=== PATIENT | male | born 1960 | race Caucasian/White ===

== ENCOUNTER → 2017-12-27 09:52 | Outpatient (CLI) | payer OTHER, SELFPAY ==
[2017-12-27 13:12] LABS: ALB/GLOB Ratio 1.1 RATIO (0.9-2.4); AST(SGOT) 16 U/L (15-37); Alanine Aminotransfer ALT/SGPT 18 U/L (16-61); Albumin, Serum 3.9 g/dL (3.2-5.0); Alkaline Phosphatase 76 U/L (45-117); Anion Gap 8 (5-15); BUN 10 mg/dL (7-18); BUN/Creat Ratio 7.5 RATIO (10-20); Chloride 103 mmol/L (98-107); Cholesterol 147 mg/dL (200); Creatinine, Serum 1.33 mg/dL (0.70-1.30); EST Glomerular Filtration Rate 59 mL/min (>60); Est Glom Filt Rate - Afr Amer 71 mL/min (>60); Globulin 3.7 g/dL (2.2-4.2); Glucose 81 mg/dL (74-106); High Density Lipoprotein 37 mg/dL; Potassium 3.6 mmol/L (3.5-5.1); Protein, Total 7.6 g/dL (6.4-8.2); Sodium Level 137 mmol/L (136-145); Triglycerides 76 mg/dL; Very Low Density Lipoprotein 15 mg/dL (5-40)
[2017-12-27 13:31] LABS: Absolute Lymphocyte Count 0.79 X10^3/ul (0.83-4.51); Absolute Neutrophil Count 2.2 X10^3/uL (2.0-7.7); Basophil# 0.01 X10^3/uL; Basophil% 0.3 % (0-1); Eosinophil# 0.01 X10^3/uL; Eosinophils% 0.3 % (0-5); Hematocrit 43.8 % (40-54); Hemoglobin 14.3 g/dl (13.0-16.5); Lymphocyte # 0.79 X10^3/ul (4.0); Lymphocyte % 20.2 % (19-41); Mean Corp Hgb Conc 32.6 g/gl (32-36); Mean Corpuscular Hgb 30.2 pg (27.0-32.0); Mean Corpuscular Volume 92.6 fL (80-94); Mean Platelet Vol. 9.4 fl (6.2-12.0); Monocyte# 0.89 X10^3/uL; Monocyte% 22.8 % (0-10); Neutrophil # 2.21 X10^3/uL (2.7-7.7); Neutrophil % 56.4 % (47-70); Platelet Count 193 K/mm3 (150-450); RBC Distribution Width CV 12.6 % (11.6-14.6); RBC Distribution Width SD 42.9 fl (35.1-43.9); Red Blood Count 4.73 M/mm3 (4.6-6.2); White Blood Count 3.9 K/mm3 (4.4-11.0)
[2017-12-27 13:39] LABS: POSITIVE COUNT NO; POSITIVE DIFFERENTIAL NO; POSITIVE MORPHOLOGY NO
== END ==
LOC: BFHLAB 09:52
PROVIDERS: Family Provider Family Medicine; PCP Family Medicine; Visit Provider Family Medicine
DX: Z00.01 Encounter for general adult medical examination with abnormal findings (principal)
CPT/HCPCS: 36415; 80053; 80061; 85025

== ENCOUNTER → 2018-01-08 13:20 | Outpatient (CLI) | payer OTHER, SELFPAY ==
--- NOTE | 2018-01-08 13:20 | SP.MBSS_ITS ---
PRIMARY / SECONDARY DIAGNOSIS: dysphagia (R13.10) REFERRING PHYSICIAN: Dr. Yuri Snider MD CURRENT DIET: regular textures, thin liquids DENTITION: WFL MENTAL STATUS: WNL RESPIRATORY STATUS: O2 via room air PREVIOUS MODIFIED BARIUM SWALLOW STUDY: none REASON FOR REFERRAL: Patient is a 57 year old male referred for a modified barium swallow (MBS) study to objectively assess the Patients oropharyngeal swallow function under fluoroscopy secondary to reported intermittent dysphagia during intake of solid textures, with the Patient reporting occasional feelings of substernal discomfort vs. globus sensation immediately following deglutition of solid textures, with the Patient attributing some of these episodes to bolus volume overload with inattention, with too large of a bite / insufficient mastication. The Patient reports that at times these episodes result in prolonged substernal discomfort and eventual emesis, both self induced and non-volitional. The Patient denies tachyphagia or routine bolus bolting, denies odynophagia. The Patient reports intermittent occurrences of reflux, though this was primarily as a child, and has not noticeably increased or accompanied the above mentioned episodes. MEDICAL HISTORY: No significant medical history reported or available within the electronic medical records at time of assessment. STUDY FINDINGS: Patient participated in a Modified Barium Swallow (MBS) study on 01/08/2018. Dr. eMndoza was the radiologist present for this evaluation. This study was recorded in the lateral view and images were sent to PACs for storage. The following consistencies were presented to this patient for analysis of oropharyngeal swallow function: thin liquids, pudding, and a regular textured, Gali Doone cookie. Results of the MBS are as follows: PENETRATION / ASPIRATION SCALE (HOLDER): 1 = does not enter airway 2 = enters airway/above vocal folds/ejected 3 = enters airway/above vocal folds/not ejected 4 = enters airway/contacts vocal folds/ejected 5 = enters airway/contacts vocal folds/not ejected 6 = enters airway/below vocal folds/ejected 7 = enters airway/below vocal folds/not ejected despite effort 8 = enters airway/below vocal folds/no effort PENETRATION / ASPIRATION SCALE (SCORE): Thin liquids via cup (single sip): 1 Thin liquids via cup (single sip): 1 Pudding via spoon: 1 Regular textured cookie: 1 Regular textured cookie: 1 Thin liquids via cup (12mm tablet): 1 Thin liquids via cup (sequential swallows): 1 IMPRESSION: DIAGNOSIS: swallow function grossly within functional limits ORAL PHASE CHARACTERIZED BY: LABIAL SEAL: no labial escape TONGUE CONTROL DURING BOLUS MANIPULATION: posterior escape of less than half of bolus on one occasion BOLUS PREPARATION / MASTICATION: timely and efficient chewing and mashing BOLUS TRANSPORT / LINGUAL MOTION: brisk tongue motion ORAL RESIDUE: trace residue lining oral structures PHARYNGEAL PHASE CHARACTERIZED BY: INITIATION OF PHARYNGEAL SWALLOW: bolus head in valleculae at first hyoid excursion SOFT PALATE ELEVATION: no bolus between soft palate and pharyngeal wall LARYNGEAL ELEVATION: complete superior movement of thyroid cartilage with complete approximation of arytenoids cartilage to epiglottic petiole ANTERIOR HYOID EXCURSION: complete anterior movement EPIGLOTTIC MOVEMENT: complete epiglottic inversion LARYNGEAL VESTIBULE CLOSURE AT HEIGHT OF SWALLOW: complete laryngeal vestibule closure with no air/contrast in laryngeal vestibule PHARYNGEAL STRIPPING WAVE: pharyngeal stripping wave present / complete PHARYNGOESOPHAGEAL SEGMENT OPENING: complete distension and complete duration with no obstruction of flow TONGUE BASE RETRACTION: trace column of contrast between tongue base and posterior pharyngeal wall PHARYNGEAL RESIDUE: trace residue within or on pharyngeal structures ESOPHAGEAL PHASE CHARACTERIZED BY: ESOPHAGEAL BOLUS CLEARANCE IN THE UPRIGHT POSITION: complete clearance; esophageal coating DIET TEXTURE RECOMMENDATIONS: Will recommend a regular textured, thin liquid diet. COMPENSATORY STRATEGIES RECOMMENDED: Reduced bolus volume, reduced rate of intake, seated upright at 90 degrees during PO intake, remain upright for 30-60 minutes post meal (GERD precaution) INTERPRETATION OF RESULTS: The Patient presents with mastication and deglutition abilities found to be grossly within normal limits. No aspiration appreciated throughout consistencies trialed. Prominent cricopharyngeal bar located at the C-5 C-6 level, no effect on pharyngoesophageal motility. No obvious esophageal phase abnormalities observed. RECOMMENDATIONS: The Patient was somewhat frustrated (appropriately, very pleasant throughout) with the lack of any definitive findings, discussed limitations with esophageal phase findings with the current study; would further consider additional assessment of the Patients esophageal functioning, as it is outside the scope of the modified barium swallow study to objectively assess esophageal functioning, may additionally consider further workup via compensation consulting manager. Further discussed options to complete a repeat therapeutic modified barium swallow study if above mentioned workup does not elucidate the cause of the Patients reported symptoms, with the Patient encouraged to bring in any specific items that routinely cause difficulties in attempt to emulate the Patients reported dysphagia. Otherwise, the Patient was able to comprehend and express recommended intake precautions detailed above with sufficient detail to suggest high likelihood of compliance. Provided brief overview of signs and symptoms of aspiration, with recommendations for the Patient to further discuss symptoms with PCP. No further skilled speech-language services warranted at this time targeting dysphagia at this time. ADDITIONAL COMMENTS/RECOMMENDATIONS: Results and recommendations were discussed with the Patient immediately following MBS completion, with the Patient verbalizing understanding and agreement with all recommendations and education provided. IMAGE COUNT: 1254 G-CODES: SWALLOWING G8996 Current Status: SWALLOWING G8997 Goal Status: SWALLOWING G8998 Discharge Status: Devon Rollins M.A., CCC-SPECIAL SERVICES AGENT [facility] Speech-Language Pathology Department [email or web address]
--- NOTE | 2018-01-08 13:27 | RAD_ITS ---
STUDY: SWALLOWING STUDY REASON FOR EXAM: Male, 57 years old. Dysphasia. TECHNIQUE: The examination was performed with Speech Pathology in attendance. Under fluoroscopic observation, the patient ingested thin barium, thick barium, barium pudding, and barium coated cracker. FLUOROSCOPY TIME: 1:32 minutes/seconds. 1254 fluoroscopic images were obtained. RADIOLOGIST INVOLVEMENT: Radiologist was present and providing direct supervision. COMPARISON: None. FINDINGS: The following was observed during swallowing of the various mixtures of barium: Thin Barium: There was no evidence of aspiration or laryngeal penetration. Barium Pudding: There was no evidence of aspiration or laryngeal penetration. Barium Coated Cracker: There was no evidence of aspiration or laryngeal penetration. RAD/Swallowing Function w/Video IMPRESSION: Normal tailored barium swallow study. No evidence of increased risk for aspiration. The swallow study findings were discussed with the patient by the speech pathologist at the conclusion of the examination. Please see speech pathology report for more information and recommendations. Electronically Signed: Jono Mendoza MD at 14:45 EDT Tel [phone], Service support ,
== END ==
LOC: RAD 13:22
PROVIDERS: Family Provider Family Medicine; PCP Family Medicine; Visit Provider Family Medicine
DX: R13.10 Dysphagia, unspecified (principal)
CPT/HCPCS: 74230; 92611

== ENCOUNTER → 2018-01-29 09:28 | Outpatient (CLI) | payer OTHER, SELFPAY ==
--- NOTE | 2018-01-29 09:45 | RAD_ITS ---
EXAM: BARIUM ESOPHAGRAM WITH DOUBLE AIR-BARIUM CONTRAST TECHNIQUE. TECHNIQUE: Real-time fluoroscopic images of the esophagus following the oral administration of barium contrast and air insufflation crystals. 99 cine imaging obtained and 2 drinking esophagram images are obtained. Imaging included swelling of a 8mm diameter barium pill. Fluoroscopy time: 77 seconds. Dose: 45.86 mGy COMPARISON: No prior esophagram imaging available. Correlation modified esophagram with speech therapy study 01/08/2018. REASON FOR EXAM: Dysphagia with food. Food stuffs mid chest off and on for years, getting worse. Smoking tobacco abuse. FINDINGS: Sliding-type hiatal hernia is noted of moderate degree with minimal GE reflux during the study with and without provocation. No obvious Schatzki's ring identified identified with these images. No esophageal long stricture, obstruction, diverticulum, lab, extravasation of contrast or mucosal lesion such as ulcer or polyp is identified. However, with barium 8 mm diameter tablet, delayed swallowing was noted with the tablet in the vallecula which was then swallowed at the pharyngeal level with water. Additionally, upper thoracic midclavicular level barium tablet delayed swallow was seen at the T4-T5 level slightly left of midline just medial and adjacent to the aortic knob for about 1 minute which may represent physiologic delay possibly due to esophageal dysmotility. Initial upright swallowing shows moderate narrowing of the distal esophagus with mild immediately superior dilatation without finding of esophagitis seen. RAD/Esophagus Only IMPRESSION: Sliding-type minimal to moderate hiatal hernia with moderate esophageal dysmotility especially upper thoracic mid esophagus at the T4-3 level medial medial and just adjacent to the aortic knob. Clinical correlation recommended. Patient describes concordant symptoms. Minimal GE reflux. No finding of extravasation of contrast, esophagitis or mucosal lesion such as ulcer or polyp identified. Electronically Signed: Brian Cobb, at 14:17 EDT Tel , Service support ,
== END ==
LOC: RAD 09:28
PROVIDERS: Family Provider Family Medicine; PCP Family Medicine; Referring Provider Internal Medicine Gastroenterology; Visit Provider Internal Medicine Gastroenterology
DX: R13.10 Dysphagia, unspecified (principal)
CPT/HCPCS: 74220

== ENCOUNTER 2018-11-28 08:34 | Emergency (ER) | payer OTHER, SELFPAY ==
[2018-11-28 08:35] VITALS: BP 151/86; PULSE 59; RESP 18; TEMP 36.6; O2SAT 100; BMI 21.7
--- NOTE | 2018-11-28 08:49 | VDLE_ITS ---
Reason For Study: Pain RIGHT LEFT GSV is normal. CFV is compressible, spontaneous, phasic, CFV is compressible, spontaneous, phasic, competent, and demonstrates normal competent and demonstrates normal augmentation. augmentation. FV is compressible, spontaneous, phasic, competent and demonstrates normal augmentation. POP V is compressible, spontaneous, phasic, competent and demonstrates normal augmentation. T/P Trunk is compressible. PTV is compressible. RT PerV is compressible. Procedure Exam performed portable in ED. A preliminary report was called and/or faxed to [facility]. Interpretation Summary There is no evidence of right lower extremity deep vein thrombosis. Right great saphenous vein appears patent and compressible segmentally. Patent and compressible left common femoral vein Ordering Physician: Baylee Smalls Referring Physician: Yuri Snider Performed By: Minal Enriquez RVT
--- NOTE | 2018-11-28 08:50 | ED.VIS.GEN ---
History of Present Illness Chief Complaint: Lower Extremity Injury Detail of Chief Complaint: Right thigh pain Informant: Patient Onset: Today Context: Sudden Onset Current Severity: Mild Maximum Severity: Moderate Narrative: Patient states that he woke at 4 AM this morning with pain to the right anterior proximal thigh. He states he was up to the restroom at 2 AM with no pain. He denies any injury. He denies any recent travel or leg swelling. No history of DVT. He does have a history of stomach cancer but states that was 20 years ago. Pain is starting to improve at this time. He denies back pain or abdominal pain. Past Medical History - Allergies and Home Meds Allergies/Adverse Reactions: Allergies No Known Allergies Allergy (Verified 11/28/18 08:37) Primary Care Physician: Yuri Snider DO [Primary Care Provider] - Prior records reviewed: Yes Past Medical History: - - Reviewed Lives: Spouse/ Significant Other Review of Systems General: Denies: Chills, Fever Eyes: Denies: Visual changes - bilaterally ENT: Denies: Bilateral ear pain Cardiovascular: Denies: Chest pain Respiratory: Denies: Dyspnea Gastrointestinal: Denies: Abdominal pain Musculoskeletal: Reports: Myalgias Skin: Denies: Rash, Abrasions Neurological: Denies: Headache, Parasthesia Psych: Denies: Depression Hematologic: Denies: Easy bruising Allergy: Denies: Uticaria Physical Exam Vital Signs/Narrative: Vital Signs Temp Pulse Resp BP Pulse Ox 11/28/18 08:35 97.9 F 59 L 18 151/86 H 100 Inital Vital Signs reviewed: Yes General: Well nourished, Well developed ENT: Moist mucous membranes Neck: Supple Cardiovascular: Regular rate, Regular rhythm Respiratory: No distress, CTA bilaterally Abdomen: Soft, Nontender Extremities: Tenderness - Mild tenderness palpation over the anterior proximal right thigh. No edema or palpable masses. No overlying skin change. Strong distal pulses. No tenderness at the hip joint. Skin: Normal color Neurological: Alert, Oriented x3, Normal Strength, Normal Sensation Psychological: Normal affect Diagnostic/Tx/Re-eval - Medical Decision Making Venous ultrasound of the right lower extremity reveals no DVT. On repeat evaluation patient reports no pain as long as his leg is lying flat, but he has mild pain when trying to lift his leg off the bed. He does state that they were walking around a lot yesterday and [place]. My suspicion is he has tendon irritation. Again there is no tenderness over the hip joint itself or over the abdomen. Will use Tylenol or ibuprofen as needed. ED Disposition - Plan for ED Patient: Disposition: Home or Assisted Living Diagnosis: Muscle strain of right thigh Instructions: MUSCLE STRAIN, Extremity Referrals: Yuri Snider DO [Primary Care Provider] - 1 Week if not improving
== END 2018-11-28 11:11 | disposition home or self-care (01) ==
PROVIDERS: Emergency Provider Emergency Medicine; Family Provider Family Medicine; PCP Family Medicine
DX: S76.911A Strain of unspecified muscles, fascia and tendons at thigh level, right thigh, initial encounter (principal); X58.XXXA Exposure to other specified factors, initial encounter; Y93.01 Activity, walking, marching and hiking; Y92.9 Unspecified place or not applicable; Y99.9 Unspecified external cause status; Z85.028 Personal history of other malignant neoplasm of stomach
CPT/HCPCS: 93971; 99282

== ENCOUNTER → 2020-01-06 | Outpatient (CLI) | payer OTHER, SELFPAY | END | disposition home or self-care (01) | LOC: LABSPEC 17:10 | PROVIDERS: PCP Family Medicine; Referring Provider Family Medicine; Visit Provider Family Medicine | DX: Z20.828 Contact with and (suspected) exposure to other viral communicable diseases (principal) | CPT/HCPCS: 87635; C9803; U0003 ==

== ENCOUNTER → 2022-07-21 | Outpatient (CLI) | payer BC, SELFPAY ==
[2022-07-21 18:53] LABS: Absolute Lymphocyte Count 1.71 X10^3/uL (0.83-4.51); Absolute Neutrophil Count 4.2 X10^3/uL (2.0-7.7); Basophil# 0.03 X10^3/uL; Basophil% 0.5 % (0-1); Eosinophil# 0.07 X10^3/uL; Eosinophils% 1.1 % (0-5); Hematocrit 41.7 % (40-54); Hemoglobin 14.1 g/dL (13.0-16.5); Lymphocyte # 1.71 X10^3/ul (0.83-4.51); Lymphocyte % 25.7 % (19-41); Mean Corp Hgb Conc 33.8 g/dL (32-36); Mean Corpuscular Hgb 31.5 pg (27.0-32.0); Mean Corpuscular Volume 93.3 fL (80-94); Mean Platelet Vol. 9.9 fl (6.2-12.0); NRBC Flagged by Analyzer 0 % (0-5); Neutrophil # 4.22 X10^3/uL (2.7-7.7); Neutrophil % 63.4 % (47-70); Platelet Count 221 K/mm3 (150-450); RBC Distribution Width CV 12.2 % (11.6-14.6); RBC Distribution Width SD 42.3 fl (35.1-43.9); Red Blood Count 4.47 M/mm3 (4.6-6.2); White Blood Count 6.7 K/mm3 (4.4-11.0)
[2022-07-21 19:02] LABS: ALB/GLOB Ratio 1.1 RATIO (0.9-2.4); AST(SGOT) 21 U/L (15-37); Alanine Aminotransfer ALT/SGPT 28 U/L (16-61); Albumin, Serum 3.8 g/dL (3.2-5.0); Alkaline Phosphatase 75 U/L (45-117); Anion Gap 7 (5-15); BUN 11 mg/dL (7-18); BUN/Creat Ratio 11.6 RATIO (10-20); Calcium,Total 9.1 mg/dL (8.5-10.1); Chloride 105 mmol/L (98-107); Cholesterol 147 mg/dL (200); Creatinine, Serum 0.95 mg/dL (0.70-1.30); EST Glomerular Filtration Rate 85 mL/min (>60); Est Glom Filt Rate - Afr Amer 103 mL/min (>60); Globulin 3.5 g/dL (2.2-4.2); Glucose 88 mg/dL (74-106); High Density Lipoprotein 36 mg/dL; Magnesium 2.1 mg/dL (1.6-2.6); PSA,Total - Annual Screen 0.58 ng/mL (0.00-4.00); Potassium 3.8 mmol/L (3.5-5.1); Protein, Total 7.3 g/dL (6.4-8.2); Sodium Level 137 mmol/L (136-145); Thyroid Stim Hormone (TSH) 0.36 uIU/mL (0.358-3.74); Triglycerides 78 mg/dL; Very Low Density Lipoprotein 16 mg/dL (5-40)
== END | disposition home or self-care (01) ==
LOC: BFHLAB 15:59
PROVIDERS: PCP Family Medicine; Referring Provider Family Medicine; Visit Provider Family Medicine
DX: Z00.00 Encounter for general adult medical examination without abnormal findings (principal); Z12.5 Encounter for screening for malignant neoplasm of prostate; R25.2 Cramp and spasm
CPT/HCPCS: 36415; 80053; 80061; 83735; 84153; 84443; 85025; G0103

== ENCOUNTER → 2022-08-05 | Outpatient (CLI) | payer BC, SELFPAY ==
--- NOTE | 2022-08-05 16:35 | CT_ITS ---
STUDY: LOW DOSE CT LUNG CANCER SCREENING REASON FOR EXAM: Male, 61 years old. SCREENING RADIATION DOSAGE (If Supplied By Facility): CTDIvol = ( 3.02 ) mGy, DLP = ( 112.87 ) mGycm TECHNIQUE: No contrast was administered. Low dose technique was utilized (average mAS-38 and kVp 120). 1.25 mm axial source images with a slice interval of 1.25-mm were reconstructed in lung windows. 1.2.5 mm coronal and sagittal reformats left lung windows. COMPARISON: None available NODULES: Nodule #: 1 Density: Solid Lung location: Lateral left lower lobe costophrenic angle: Contacting the pleura Location in series: Series Number: 2 Image: 212 Size - D1 x D2 mm: 7 x 7 mm: 7mm average diameter Margin: Circumscribed Shape: Nearly round Calcification: None Fat: None Temporal comparison: N/A Nodule #: 2 Density: Solid Lung location: Anterior right lower lobe: Contacting the pleura Location in series: Series Number: 2 Image: 147 Size - D1 x D2 mm: 4 x 2 mm: 3mm average diameter Margin: Circumscribed Shape: Oval Calcification: None Fat: None Temporal comparison: N/A Nodule #: 3 Density: Solid Lung location: Anterior left lower lobe: Contacting the pleura Location in series: Series Number: 2 Image: 122 Size - D1 x D2 mm: 5 x 2 mm: 4mm average diameter Margin: Circumscribed Shape: Oval Calcification: None Fat: None Temporal comparison: N/A Punctate right basilar calcified granuloma also noted just above the diaphragm. Total lung nodules (excluding granulomas): 3 Parenchyma: Moderate upper lung predominant emphysematous change. Posterior right lower lobe 1.7 cm bulla. No consolidation, effusion, pneumothorax. Minimal bilateral dependent atelectasis. Endobronchial lesion: None Aorta: Mild aortic atherosclerosis without ectasia CORONARY ARTERIES: Moderate multivessel coronary atherosclerosis. Heart: No cardiomegaly or pericardial effusion. Pulmonary artery: No gross enlargement Mediastinal nodes: Scattered mediastinal lymph nodes, mostly subcentimeter in short axis with 1.1 cm lymph node in the aortopulmonary window. Subcentimeter bilateral hilar lymph nodes are also present. Other chest and abdominal findings: None CT/Low Dose CT Lung Screening IMPRESSION: Few pulmonary nodules up to 7 mm in average diameter. OVERALL: Lung-RADS category 3 - Followup screening with LDCT in 6 months. Scattered mediastinal lymph nodes up to 1.1 cm short axis with subcentimeter hilar lymph nodes, likely reactive. This can be reassessed on follow-up CT recommended above. Moderate coronary atherosclerosis. IMPORTANT NOTES FOR USE: ACR Lung-RADS Version 1.1 Assessment Categories Release Date: 2018 Category: Coded 0-4 bases on nodule(s) with highest degree of suspicion. Negative screen is defined as categories 1 and 2; a positive screen is defined as categories 3 and 4. Category 3 and 4A nodules that are unchanged on interval CT should be coded as category 2, and individuals returned to screening in 12 months. Category 4X: Category 3 or 4 nodules with additional imaging findings that increase the suspicion of lung cancer, such as spiculation, GGN that doubles in size in 1 year, enlarged lymph notes, etc. Category Modifiers: S (significant finding unrelated to lung cancer) Electronically Signed: Roger Roach MD at 14:50 EDT ,
== END | disposition home or self-care (01) ==
PROVIDERS: PCP Family Medicine; Referring Provider Family Medicine; Visit Provider Family Medicine
DX: Z12.2 Encounter for screening for malignant neoplasm of respiratory organs (principal); Z72.0 Tobacco use
CPT/HCPCS: 71271

== ENCOUNTER 2022-10-12 10:43 | Day surgery (SDC) | payer BC, SELFPAY ==
--- NOTE | 2022-10-12 10:48 | HP.PCM_ITS ---
[facility] - General General Date of Admission: 10/12/22 Date of Service: 10/12/22 Chief Complaint: Screening colonoscopy HPI Narrative KURT POPE, is a 61 M who presents today for screening colonoscopy. He has a past medical history of gastric cancer status post partial gastrectomy. He is here for screening colonoscopy today. He is not having abdominal pain. He is not have any nausea. Does not have any vomiting or diarrhea. Overall he is in fairly good health. [facility] Medical History Cancer Chronic cough Chronic rhinitis Coronary atherosclerosis Difficulty swallowing Erectile dysfunction Esophageal ring Former smoker Gastric reflux History of esophageal dilatation Leg cramps Lipoma of right upper extremity Loss of hearing Pulmonary nodules Rosacea Shortness of breath on exertion Stomach cancer Tobacco user Wears dentures Home Medications aspirin 81 mg tablet,delayed release (Adult Low Dose Aspirin) 81 mg PO DAILY 09/13/22 [History Last Taken Unknown] multivitamin 1 tab PO DAILY 09/13/22 [History Last Taken Unknown] sildenafil 100 mg tablet 100 mg PO DAILY PRN Erectile Dysfunction 09/13/22 [History Last Taken Unknown] Allergy/AdvReac Type Severity Reaction Status Date / Time No Known Allergies Allergy Verified 10/07/22 14:36 Surgical History History of partial gastrectomy Hx of colonoscopy Social History (Updated 09/13/22 @ 10:54 by Elham Alejandra) current occupational status: employed Smoking Status: Former smoker ROS Review of Systems ROS Unobtainable: other Constitutional Constitutional: Denies fatigue, fever(s), poor appetite, weight gain or weight loss ENT HEENT: Denies mouth lesions Cardiovascular Cardiovascular: Denies abdominal bloating, abdominal edema or abdominal pain Respiratory/Chest Respiratory/Chest: Denies change in mental status, change in phlegm color, chest congestion or chest tightness Gastrointestinal Gastrointestinal: Denies belching, bloating, change in bowel habits, change in stool character, chewing difficulty, coffee ground emesis, constipation, cramping, diarrhea, dyspepsia, dysphagia, early satiety, excessive flatus, fecal incontinence, heartburn, hematemesis, hematochezia, hemorrhoids, loose stools, melena, nausea, odynophagia, rectal bleeding, tenesmus, vomiting or weight changes Genitourinary Genitourinary: Denies abdominal discomfort, burning urination or itching Musculoskeletal Musculoskeletal: Reports as per HPI; Denies muscle weakness or myalgias Integumentary Integumentary: Denies jaundice Neurologic Neurologic: Denies lack of coordination or weakness Psychiatric Psychiatric: Denies confusion, depression, memory loss, mood swings, paranoia or suicidal ideation Endocrine Endocrinology: Denies systems reviewed and no addt'l complaints, except as documented Hematologic/Lymphatic Hematologic/Lymphatic: Denies anemia, easy bleeding, easy bruising or lymphadenopathy Allergic/Immunologic Allergic/Immunologic: Denies systems reviewed and no addt'l complaints, except as documented Physical Exam Const alert General Appearance: cooperative Orientation / Consciousness: oriented to person HEENT hearing grossly normal bilaterally Head and Scalp: normal to inspection Face and Sinus: face symmetric Nose: external nose normal Mouth: oral and palatal mucosa normal Eyes conjunctivae normal General Eye: normal appearance of both eyes Neck full ROM General: normal visual inspection Lymph Lymphatic: no lymphadenopathy noted Chest inspection of chest normal and palpation of chest normal Chest: symmetrical chest wall rise Resp normal respiratory effort Effort and Inspection: able to speak in complete sentences Cardio regular rate GI non-distended Percussion: normal to percussion Rectal Exam: deferred Neuro Speech: speech normal Gait (Neuro): normal gait Assessment & Plan Assessment/Plan (1) Encounter for screening for malignant neoplasm of colon: PLAN: He was explained alternatives, risk, benefits including not withstanding bleeding, infection, sepsis, perforation, need for discharge and . He will have an ASA of 2.
[2022-10-12 11:04] VITALS: BP 138/86; PULSE 60; RESP 17; TEMP 36.8; O2SAT 99; BMI 22.4
[2022-10-12] MEDS: Lactated Ringers 1,000 ML 15 ML IV (11:06)
--- NOTE | 2022-10-12 11:45 | COLBX_PTH ---
PATIENT: KURT POPE LOC: EN U#:[id number] AGE/SX: 61/M ROOM: RE10/12/[address]: Dr. Rodriguez Shelby DO : 1960 BED: DIS: 10/12/2022 SPEC #: [id number] RECD: 10/12/22 13:23 STATUS: PATRICIA REQ #: [id number] TAYLOR: 10/12/22 11:[address]: Rodriguez Shelby DEPT: SURGICAL PATHOLOGY RECD BY: Lissett Rubio ENTERED: 10/13/22 08:45 SP TYPE: COLON BX OTHR DR: Dr. Yuri Snider, DO Tissues: Rectum, NOS Procedures: Surgery Specimen Level IV HEADER OPERATION: Colonoscopy ? open access (MAC) with polypectomy and cautery PRE-OP DIAGNOSIS: Screening TISSUE SUBMITTED: Rectal polyp MICROSCOPIC DIAGNOSIS Rectal polyp, biopsy: Fragments of tubular adenoma. AM:walter 10/14/2022 MICROSCOPIC DESCRIPTION Slides are reviewed. GROSS DESCRIPTION Received in fixative is one container labeled with the patient's name and designated rectal polyp. The specimen consists of multiple irregular fragments of light love soft tissue that in aggregate measure 2.0 x 1.0 x 0.2 cm. The specimen is totally submitted in one cassette. / AM:walter 10/13/2022 TC:5 CPT: 25965
[2022-10-12 12:50] VITALS: BP 102/70; BP 138/86; PULSE 70; RESP 18; TEMP 36.4; O2SAT 95
--- NOTE | 2022-10-12 12:51 | OP.COLON_ITS ---
Patient Name: Mark Garsia Procedure Date: 10/12/2022 12:21 PM Date of : 1960 Age: 61 Procedure: Colonoscopy Indications: Screening for colorectal malignant neoplasm Providers: Rodriguez Shelby DO Medicines: Monitored Anesthesia Care Patient Profile: This is a 61 year old male. Refer to note in patient chart for documentation of history and physical. Last Colonoscopy: none. The patient's first colonoscopy is today. Complications: No immediate complications. Procedure: Pre-Anesthesia Assessment: - Prior to the procedure, a History and Physical was performed, and patient medications and allergies were reviewed. The patient is competent. The risks and benefits of the procedure and the sedation options and risks were discussed with the patient. All questions were answered and informed consent was obtained. Patient identification and proposed procedure were verified by the physician in the pre-procedure area. Mental Status Examination: alert and oriented. Prophylactic Antibiotics: The patient does not require prophylactic antibiotics. Prior Anticoagulants: The patient has taken no previous anticoagulant or antiplatelet agents. After reviewing the risks and benefits, the patient was deemed in satisfactory condition to undergo the procedure. The anesthesia plan was to use monitored anesthesia care (MAC). Immediately prior to administration of medications, the patient was re-assessed for adequacy to receive sedatives. The heart rate, respiratory rate, oxygen saturations, blood pressure, adequacy of pulmonary ventilation, and response to care were monitored throughout the procedure. The physical status of the patient was re-assessed after the procedure. After I obtained informed consent, the scope was passed under direct vision. Throughout the procedure, the patient's blood pressure, pulse, and oxygen saturations were monitored continuously. The colonoscope was introduced through the anus and advanced to the cecum, identified by appendiceal orifice and ileocecal valve. Scope In: 12:30:23 PM Scope Withdrawal Time 0 hours 10 minutes 37 seconds Scope Out: 12:44:12 PM Total Procedure Duration Time 0 hours 13 minutes 49 seconds Findings: The perianal and digital rectal examinations were normal. A single medium-sized localized angiodysplastic lesion with bleeding was found in the cecum. Coagulation for hemostasis using heater probe was successful. Estimated blood loss was minimal. A 9 mm polyp was found in the rectum. The polyp was sessile. The polyp was removed with a hot snare. Resection and retrieval were complete. Verification of patient identification for the specimen was done. Estimated blood loss was minimal. A few small-mouthed diverticula were found in the sigmoid colon. Impression: - A single bleeding colonic angiodysplastic lesion. Treated with a heater probe. - One 9 mm polyp in the rectum, removed with a hot snare. Resected and retrieved. - Diverticulosis in the sigmoid colon. Recommendation: - Discharge patient to home. - Resume previous diet. - Continue present medications. - Await pathology results. - Repeat colonoscopy in 5 years for surveillance. Procedure Code(s): --- Professional --- 47994, 59, Colonoscopy, flexible; with control of bleeding, any method 73457, Colonoscopy, flexible; with removal of tumor(s), polyp(s), or other lesion(s) by snare technique CPT copyright 2017 [employer]. All rights reserved. The codes documented in this report are preliminary and upon kineseologist review may be revised to meet current compliance requirements. Rodriguez Shelby DO 10/12/2022 12:51:14 PM This report has been signed electronically. Number of Addenda: 0 Note Initiated On: 10/12/2022 12:21 PM
--- NOTE | 2022-10-12 12:52 | OP.CCLET_ITS ---
10/12/2022 Yuri Snider [address] [facility] [place] [address] Re : [facility] This procedure was performed on Wednesday, October 12, 2022. My impressions and recommendations are as follows: Impressions : - A single bleeding colonic angiodysplastic lesion. Treated with a heater probe. - One 9 mm polyp in the rectum, removed with a hot snare. Resected and retrieved. - Diverticulosis in the sigmoid colon. Recommendations : - Discharge patient to home. - Resume previous diet. - Continue present medications. - Await pathology results. - Repeat colonoscopy in 5 years for surveillance. My findings are described in the full procedure note, which is enclosed. If I can be of further assistance, please feel free to contact me at . Sincerely, Rodriguez Shelby, 10/12/2022 12:51:14 PM This report has been signed electronically.
[2022-10-12 12:55] VITALS: BP 110/71; BP 138/86; PULSE 68; RESP 18; O2SAT 95
[2022-10-12 13:00] VITALS: BP 114/75; BP 138/86; PULSE 58; RESP 18; O2SAT 96
[2022-10-12 13:08] VITALS: BP 111/79; BP 138/86; PULSE 58; RESP 18; TEMP 36.6; O2SAT 98
[2022-10-12 13:14] VITALS: BP 138/86
== END 2022-10-12 13:57 | disposition home or self-care (01) ==
LOC: EN 10:45 → AC 10:46
PROVIDERS: PCP Family Medicine; Referring Provider Family Medicine; Visit Provider Internal Medicine Gastroenterology
PROC: 0DJD8ZZ Inspection of Lower Intestinal Tract, Via Natural or Artificial Opening Endoscopic (ICD-10-PCS; CPT 45378; principal; 2022-10-12 11:40)
DX: Z12.11 Encounter for screening for malignant neoplasm of colon (principal); K57.30 Diverticulosis of large intestine without perforation or abscess without bleeding; I25.10 Atherosclerotic heart disease of native coronary artery without angina pectoris; Z87.891 Personal history of nicotine dependence; Z90.3 Acquired absence of stomach [part of]; Z85.00 Personal history of malignant neoplasm of unspecified digestive organ; K55.21 Angiodysplasia of colon with hemorrhage; D12.8 Benign neoplasm of rectum
CPT/HCPCS: 45385; 45382; 88305; J7120; J2405

== ENCOUNTER → 2023-03-09 | Outpatient (CLI) | payer BC, SELFPAY ==
--- NOTE | 2023-03-09 13:59 | CT_ITS ---
INDICATION: F/U PULM NODULE EXAMINATION: CT CHEST WITHOUT CONTRAST - CT Chest W/O Contrast Injection TECHNIQUE: Helically acquired images were obtained of the chest. A radiation dose optimization technique was used for this scan. IV Contrast dosage and agent: None. COMPARISON: 08/05/2022 FINDINGS: LUNGS, PLEURA AND LARGE AIRWAYS: Stable 4 x 2 pulmonary nodule anterior left lower lobe contacting the pleura, image 62 of series 4; stable 4 x 2 mm nodule right lower lobe contacting the pleura, image 73 of series 4; stable pleural-based 7 x 7 mm nodule left lower lobe laterally, image 107 of series 4. No consolidations, infiltrates or mass lesions. Stable changes of emphysema with bullous changes at the right lung base and stable pneumatocele right lower lobe. No pleural effusions. THYROID: No thyroid lesions. HEART AND PERICARDIUM: Heart size is normal. No pericardial effusion. Coronary artery calcifications present. VESSELS: Stable ectasia ascending thoracic aorta. MEDIASTINUM AND CHANA: Stable shotty mediastinal lymph nodes. Esophagus is unremarkable. No hiatal hernia. UPPER ABDOMEN: No acute pathology. Cholelithiasis. BONES: No acute or aggressive abnormality. CT/Chest without Contrast IMPRESSION: Stable pulmonary nodules. Recommend further six-month follow-up. No acute pulmonary findings. Electronically Signed: Yon Shelby MD at 19:07 [facility] ,
== END | disposition home or self-care (01) ==
LOC: CT 13:58
PROVIDERS: PCP Family Medicine; Referring Provider Family Medicine; Visit Provider Family Medicine
DX: R91.8 Other nonspecific abnormal finding of lung field (principal)
CPT/HCPCS: 71250

== ENCOUNTER → 2023-10-02 | Outpatient (CLI) | payer BC, SELFPAY ==
--- NOTE | 2023-10-02 15:59 | CT_ITS ---
INDICATION: MULTIPLE PULMONARY NODULES EXAMINATION: CT CHEST WITH CONTRAST - CT Chest W/ Contrast Injection TECHNIQUE: Helically acquired images were obtained of the chest following IV contrast. The protocol utilizes one or more of the following dose reduction techniques: automated exposure control, adjustment of mA and/or kV according to patient size,and/or use of iterative reconstruction technique. IV Contrast dosage and agent: 100 mL of Isovue 300 RADIATION DOSAGE (If Supplied By Facility): CTDIvol = ( 11.51 ) mGy, DLP = ( 385.71 ) mGycm COMPARISON: Prior study dated: 03/09/2023 FINDINGS: LUNGS, PLEURA AND LARGE AIRWAYS: The central airways are patent. Severe centrilobular and paraseptal emphysema. No consolidation. Unchanged fissural lymph node along the left major fissure on series 2 image 63. Additional unchanged fissural lymph node at the right major fissure on series 2 image 76. Pleural-based left lower lobe nodule identified measuring 0.7 cm on series 2 image 106. This is unchanged. No new pulmonary nodule. No pleural effusion or thickening. No pneumothorax. THYROID: No thyroid lesions. HEART AND PERICARDIUM: Heart size is normal. No pericardial effusion. Coronary artery calcifications are noted. VESSELS: Thoracic aorta is not dilated. No aortic dissection. No obvious central pulmonary embolism although this study was not performed with the pulmonary embolism protocol. MEDIASTINUM AND CHANA: No mediastinal or hilar adenopathy. Esophagus is unremarkable. No hiatal hernia. UPPER ABDOMEN: Cholelithiasis without findings to suggest acute cholecystitis. BONES: No suspicious lytic or blastic abnormality. Mild degenerative changes of the spine. CT/Chest WITH Contrast IMPRESSION: Severe emphysema. Left lower lobe 0.7 cm nodule is unchanged. As such, suggest resumption of annual lung cancer screening CT . Cholelithiasis. Electronically Signed: Bear Torres MD at 22:30 EDT ,
[2023-10-02 16:28] LABS: CREATININE FINGERSTICK < 1.0 mg/dL (0.70-1.30); EGFR FINGERSTICK > 60.0000 mL/min (>60)
== END | disposition home or self-care (01) ==
LOC: CT 15:53
PROVIDERS: PCP Family Medicine; Referring Provider Family Medicine; Visit Provider Family Medicine
DX: Z01.812 Encounter for preprocedural laboratory examination (principal); R91.8 Other nonspecific abnormal finding of lung field
CPT/HCPCS: 71260; Q9967

== ENCOUNTER → 2023-11-21 | Outpatient (CLI) | payer BC, SELFPAY ==
--- NOTE | 2023-11-21 13:45 | RAD_ITS ---
STUDY: X-RAY - CERVICAL SPINE REASON FOR EXAM: Male, 63 years old. Radiating neck pain TECHNIQUE: 5 view(s) of the cervical spine were obtained. COMPARISON: None FINDINGS: Normal anterior atlantoaxial articulation. Normal odontoid process. There is straightening of the normal cervical lordosis. Normal vertebral bodies and endplates. Normal disc space heights in the proximal cervical spine there is disc space narrowing at C5-6, C6-7, and C7-T1.. Bilateral foraminal narrowing in the lower cervical spine The soft tissue structures are unremarkable. RAD/Cerv Spine 4 or 5 Views IMPRESSION: Multilevel degenerative changes in the lower cervical spine from C5-6 to C7-T1. No fracture or suspicious osseous lesion Electronically Signed: Iron Banks MD at 14:44 EDT ,
== END | disposition home or self-care (01) ==
LOC: MTRAD 13:39
PROVIDERS: PCP Family Medicine; Referring Provider Nurse Practitioner Family; Visit Provider Nurse Practitioner Family
DX: M54.2 Cervicalgia (principal)
CPT/HCPCS: 72050

== ENCOUNTER 2024-06-01 08:19 | Outpatient (CLI) | payer BC, SELFPAY ==
[2024-06-01 09:21] LABS: Absolute Lymphocyte Count 1.36 X10^3/uL (0.83-4.51); Absolute Neutrophil Count 3.5 X10^3/uL (2.0-7.7); Basophil# 0.03 X10^3/uL; Basophil% 0.5 % (0-1); Eosinophils% 1.8 % (0-5); Hematocrit 47.1 % (40-54); Hemoglobin 15.4 g/dL (13.0-16.5); Lymphocyte # 1.36 X10^3/ul (0.83-4.51); Lymphocyte % 24.9 % (19-41); Mean Corp Hgb Conc 32.7 g/dL (32-36); Mean Corpuscular Hgb 30.6 pg (27.0-32.0); Mean Corpuscular Volume 93.6 fL (80-94); Mean Platelet Vol. 9.2 fl (6.2-12.0); Monocyte# 0.46 X10^3/uL; Monocyte% 8.4 % (0-10); NRBC Flagged by Analyzer 0 % (0-5); Neutrophil # 3.51 X10^3/uL (2.7-7.7); Neutrophil % 64.2 % (47-70); Platelet Count 206 K/mm3 (150-450); RBC Distribution Width CV 12.7 % (11.6-14.6); RBC Distribution Width SD 43.8 fl (35.1-43.9); Red Blood Count 5.03 M/mm3 (4.6-6.2); White Blood Count 5.5 K/mm3 (4.4-11.0)
[2024-06-01 09:23] LABS: D-Dimer Quantitative (DVT/PE) 0.27 FEU/ug/m (0.27-0.49)
[2024-06-01 09:51] LABS: ALB/GLOB Ratio 1.1 RATIO (0.9-2.4); AST(SGOT) 16 U/L (15-37); Alanine Aminotransfer ALT/SGPT 25 U/L (16-61); Albumin, Serum 4.1 g/dL (3.2-5.0); Alkaline Phosphatase 78 U/L (45-117); Anion Gap 3 (5-15); BUN 14 mg/dL (7-18); BUN/Creat Ratio 13.9 RATIO (10-20); Calcium,Total 9.5 mg/dL (8.5-10.1); Chloride 108 mmol/L (98-107); Cholesterol 181 mg/dL (200); Creatinine, Serum 1.01 mg/dL (0.70-1.30); EST Glomerular Filtration Rate 79 mL/min (>60); Est Glom Filt Rate - Afr Amer 96 mL/min (>60); Globulin 3.8 g/dL (2.2-4.2); Glucose 99 mg/dL (74-106); High Density Lipoprotein 55 mg/dL; PSA,Total - Annual Screen 0.58 ng/mL (0.00-4.00); Potassium 4.6 mmol/L (3.5-5.1); Protein, Total 7.9 g/dL (6.4-8.2); Sodium Level 139 mmol/L (136-145); Thyroid Stim Hormone (TSH) 0.836 uIU/mL (0.358-3.740); Triglycerides 80 mg/dL; Very Low Density Lipoprotein 16 mg/dL (5-40)
== END 2024-06-01 23:59 | disposition home or self-care (01) ==
LOC: LAB 08:21
PROVIDERS: PCP Family Medicine; Referring Provider Family Medicine; Visit Provider Family Medicine
DX: Z00.00 Encounter for general adult medical examination without abnormal findings (principal); Z12.5 Encounter for screening for malignant neoplasm of prostate; R06.09 Other forms of dyspnea; R53.83 Other fatigue
CPT/HCPCS: 36415; 80053; 80061; 84153; 84443; 85025; 85379; G0103

== ENCOUNTER 2024-06-25 09:38 | Outpatient (CLI) | payer BC, SELFPAY ==
--- NOTE | 2024-06-25 09:43 | STEWCON_ITS ---
Reason For Study Reason For Study: Abnormal EKG Stress Results Protocol: Stress Echocardiogram with Definity, James Protocol Maximum Predicted HR: 156 bpm Target HR: 133 bpm % Maximum Predicted HR: 79 % Heart Stage Duration Rate BP Comment (mm:ss) (bpm) Baseline 55 150/82Patient denies chest pain Stage 1 3:00 95 148/78Patient denies chest pain Stage 2 3:00 111 160/72Patient denies chest pain. Complains of shortness of breath. Stage 3 2:06 123 170/80Increased shortness of breath. Fatigue. Patient denies chest pain. Shortness of breath resolved. 2.5 ml Total Definity used per Recovery 64 140/72protocol. Stress Duration: 8:06 mm:ss Maximum Stress HR: 123 bpm Baseline Echocardiogram Findings The left ventricular ejection fraction is 50 %. Normal size and thickness. Stress Echo Wall motion Data Resting WM Intermediate WM Stress WM Resting Wall Motion Wall Motion Stress Inferior wall hypokinesis. The inferior wall remains hypokinetic and does not augment post stress. The inferior septum and mid to distal anterior septum failed to augment post stress. EKG Data Resting ECG shows sinus bradycardia. Exercise stress ECG shows sinus tachycardia with no ischemic changes. ECHO/Stress Test Echo W/Contrast Interpretation Summary Resting ECG sinus bradycardia. Patient failed to achieve target heart rate. Ach ieved 79% maximum predicted heart rate. Exercise terminated secondary to dyspnea. No ECG evidence of ischemia at 79% of maximum predicted heart rate. Resting left ventricular systolic ejection fraction 50%. Resting inferior hypok inesis. Postexercise, left ventricular systolic ejection fraction fails to augment. Inf erior wall remains hypokinetic suggestive of possible prior infarct. Inferior septal, apical and mid to distal anterior s eptal hypokinesis post exercise suggestive of ischemia. Ordering Physician: Yuri Snider Referring Physician: Yuri Snider Performed By: RR
== END 2024-06-25 23:59 | disposition home or self-care (01) ==
PROVIDERS: PCP Family Medicine; Referring Provider Family Medicine; Visit Provider Family Medicine
DX: I25.10 Atherosclerotic heart disease of native coronary artery without angina pectoris (principal); I25.2 Old myocardial infarction; R06.09 Other forms of dyspnea; R94.31 Abnormal electrocardiogram [ECG] [EKG]
CPT/HCPCS: 93017; 93350; Q9957; A4216; C8928

== ENCOUNTER 2024-08-14 07:03 | Day surgery (SDC) | payer BC, SELFPAY ==
--- NOTE | 2024-08-09 10:09 | RAD_ITS ---
PROCEDURE: CHEST PA AND LATERAL (RADCXR), 08/09/2024 REASON FOR EXAM: PRE-PROCEDURE DIAGNOSTIC TECHNIQUE: PA and lateral views of the chest were obtained. COMPARISON: None FINDINGS: Heart: Unremarkable. Mediastinum: Trace atherosclerosis in the aortic arch. Lungs/pleura: Suspect emphysema. Question vague interstitial/airspace disease in the posterior lung bases most evident on the lateral view. No pleural effusion or visible pneumothorax. Bones: Multilevel spondylosis. Trace thoracolumbar scoliosis. Lines and support devices: None. Other: Surgical clip projects over the anterior abdomen on the lateral view. RAD/Chest PA and Lateral IMPRESSION: 1. Suspect vague opacities in the posterior lung bases on the lateral view with out priors for comparison. Correlate for pneumonia and recommend follow-up to radiographic resolution versus CT. In lig ht of reported long history of smoking by technologist, CT may be prudent. Regardless, follow-up lung cancer screening i s probably indicated per the below. 2. Additional description as above. The USPSTF recommends annual screening for lung cancer with low-dose computed t omography (LDCT) in adults aged 50 to 80 years who have a 20 pack-year smoking history and currently smoke or have quit within the past 15 years. Reading Location: [id number]
[2024-08-09 10:41] LABS: Hematocrit 43.6 % (40-54); Mean Corp Hgb Conc 34.4 g/dL (32-36); Mean Platelet Vol. 9.1 fl (6.2-12.0); Platelet Count 198 K/mm3 (150-450); RBC Distribution Width CV 12.4 % (11.6-14.6); RBC Distribution Width SD 42.5 fl (35.1-43.9); Red Blood Count 4.69 M/mm3 (4.6-6.2); White Blood Count 6.3 K/mm3 (4.4-11.0)
[2024-08-09 10:55] LABS: Prothrombin Time (Protime)PT. 13.5 SECONDS (11.7-14.9)
[2024-08-09 11:33] LABS: Anion Gap 11 (5-15); BUN 14 mg/dL (4-19); BUN/Creat Ratio 13.8 RATIO (10-20); Calcium,Total 9.3 mg/dL (7.6-11.0); Chloride 103 mmol/L (98-108); Creatinine, Serum 1.02 mg/dL (0.70-1.20); EST Glomerular Filtration Rate 82 (>60); Glucose 89 mg/dL (70-99); Potassium 3.9 mmol/L (3.3-5.1); Sodium Level 137 mmol/L (133-145)
[2024-08-13 08:53] VITALS: BMI 24.4
--- NOTE | 2024-08-14 07:11 | ECHOCS_ITS ---
Reason For Study Reason For Study: ABNORMAL CV FUNCTION STUDY Procedure This was a 2D Doppler, Color Flow transthoracic echocardiogram. The study was technically difficult. Due to respiratory interference. Contrast injection was performed. Left Ventricle Normal size and thickness. Apical false tendon noted. Mild posterior basal and inferior hypokinesis. Estimated LVEF 50%. Stage I diastolic dysfunction. Right Ventricle Normal right ventricle. Atria The left and right atria are normal. Mitral Valve Moderate (2+) mitral valve insufficiency. Tricuspid Valve Mild tricuspid valve insufficiency. Right ventricular systolic pressure estimated to be 40 mmHg. Aortic Valve The aortic valve is not well visualized in the short axis view. There is no aortic stenosis. No aortic valve insufficiency. Pulmonic Valve The pulmonic valve is not well visualized. Great Vessels Normal sized aortic root. Pericardium/Pleural No pericardial effusion. Medication Diluted definity 3.0ml given slow IV push to enhance endocardial definition. MMode/2D Measurements & Calculations LVIDd: 5.6 cm IVSd: 1.0 cm Ao root diam: 3.2 cm LVIDs: 4.0 cm LVPWd: 1.0 cm RVDd: 3.3 cm FS: 29.6 % LAV(MOD-bp): 70.6 ml LVAd ap4: 34.7 cm2 SV(MOD-sp4): 52.1 ml LAV(MOD-bp) Indexed: 35.5 ml/m2 LVLd ap4: 8.9 cm SI(MOD-sp4): 26.2 ml/m2 LAV(MOD-sp2): 68.8 ml EDV(MOD-sp4): 113.4 ml LAV(MOD-sp4): 64.5 ml EDV(sp4-el): 115.2 ml LVAs ap4: 24.0 cm2 LVLs ap4: 8.1 cm ESV(MOD-sp4): 61.4 ml ESV(sp4-el): 60.2 ml EF(MOD-sp4): 45.9 % EF(sp4-el): 47.7 % SV(sp4-el): 55.0 ml LA A4 area: 20.1 cm2 LA dimension(2D): 3.9 cm RA A4 area: 14.7 cm2 TAPSE: 2.7 cm Time Measurements MV dec time: 0.20 sec Doppler Measurements & Calculations MV E max duncan: 68.6 cm/sec Lat Peak E' Duncan: 9.9 cm/sec Med Peak E' Duncan: 7.2 cm/sec MV A max duncan: 68.2 cm/sec E/E' lat: 6.9 E/E' med: 9.5 MV E/A: 1.0 MV V2 max: 88.4 cm/sec MV P1/2t max duncan: 87.4 cm/sec Ao V2 max: 100.7 cm/sec MV max P.1 mmHg MV P1/2t: 64.0 msec Ao max P.1 mmHg MV V2 mean: 42.0 cm/sec MV dec slope: 400.1 cm/sec2 Ao V2 mean: 76.1 cm/sec MV mean P.92 mmHg MVA(P1/2t): 3.4 cm2 Ao mean P.5 mmHg MV V2 VTI: 30.9 cm Ao V2 VTI: 26.1 cm AV (velocity ratio): 0.88 LV V1 max: 94.4 cm/sec PA V2 max: 95.2 cm/sec TR max duncan: 297.2 cm/sec LV V1 max P.6 mmHg PA V2 mean: 60.8 cm/sec TR max P.3 mmHg LV V1 mean P.7 mmHg LV V1 mean: 59.4 cm/sec LV V1 VTI: 23.1 cm ECHO/Echo Complete W/ Contrast Interpretation Summary Mild posterior basal and inferior hypokinesis. Estimated LVEF 50%. Stage I dale tolic dysfunction. Moderate (2+) mitral valve insufficiency. Mild tricuspid valve insufficiency. Right ventricular systolic pressure estimated to be 40 mmHg. Ordering Physician: Sohail Muse Referring Physician: Yuri Snider Performed By: Elizabeth Dee, RDCS, RVT
--- NOTE | 2024-08-14 09:56 | CL.D_ITS ---
Patient Name: KURT POPE Study Date: 08/14/2024 Performing: Sohail Muse MD Ht: 71 inches 180.34 cm : 1960 Wt: 174.98 lbs 79.37 kg Age: 63 Gender: male BSA: 1.99 PROCEDURE(S) PERFORMED DC02-([id number])[facility] CLINICAL PROFILE AND INDICATIONS Indications: Suspected CAD Heart Failure: None Stress/Imaging Stress Echocardiogram: Yes Result: Positive High RiskStress Echocardiogram: Positive High Risk CAD Presentations: Other: Dyspnea CONCLUSIONS 80% Prox, 80% Mid LAD; 50% ostial D1 80% Prox OM1 Distal RCA sub-total, RPLV and RPDA filling retrogradely via collaterals from the left system RECOMMENDATIONS Surgery consult for coronary revascularization DESCRIPTION OF PROCEDURE The patient arrived to the procedure lab. The risks and benefits of the procedure as well as a full description of our services here and current unavailability of surgical backup were fully explained to the patient and/or their significant other prior to the catheterization. The Timeout was completed, verifying the correct patient and procedure. The patient's procedural site was prepped and draped in the usual fashion. Local anesthetic was given subcutaneously to right radial region with Lidocaine 2%. Using a modified Seldinger technique, arterial access was obtained via the right radial artery, a 6Fr sheath was inserted. Left Coronary Artery selective angiography was performed in multiple views using a 5 Fr. 4.0 [place] catheter. Right Coronary Artery selective angiography was then performed in multiple views using a 5 Fr. 4.0 [place] catheter.The arterial sheath was pulled and a TR Band was applied for hemostasis 11 ml of air CORONARY ANGIOGRAPHY DOMINANCE: Right Dominant LEFT MAIN: Tubular 20% Ostial lesion in LMCA LEFT ANTERIOR DESCENDING ARTERY: LAD: Tubular 80% Mid lesion in LAD Tubular 80% Mid lesion in LAD DIAGONAL 1: Tubular 50% Ostial lesion in DIAG1 OM 1: Tubular 80% Proximal lesion in MARG1 OM 2: Tubular 80% Proximal lesion in MARG1 RIGHT CORONARY ARTERY: RCA: Tubular 50% Mid lesion in RCA Tubular 50% Proximal lesion in RCA Tubular 99% Distal lesion in RCA COLLATERAL FLOW: Collateral flow from DIAG1 to RT LV-BR Collateral flow from SEP to RT PDA COMPLICATIONS No Complications PROCEDURE MEDICATIONS Fentanyl 50 mcg IV Versed 1 mg IV Fentanyl 50 mcg IV Versed 1 mg IV Oxygen: 2 L/min via nasal cannula Baby Aspirin (81mg) 1 Tabs PO @ 08/14/2024 08:37:34 Heparin given IA 08/14/2024 09:01:07 Verapamil 2.5mg, Ntg 200mcgs, 2000 units of Heparin given IA 08/14/2024 09:01:07 SUMMARY OF HEMODYNAMIC DATA Time AIR REST ECG 08:35:49 AO 121/69 (89) SA 09:07:33 AO 123/68 (90) 09:12:33 AIR REST 09:54:07 Signed By Sohail Muse MD On 08/14/2024 09:55:40 Signed By Sohail Muse MD On 08/14/2024 09:54:57 Sohail Muse MD
== END 2024-08-14 11:45 | disposition home or self-care (01) ==
PROVIDERS: PCP Family Medicine; Referring Provider Internal Medicine Cardiovascular Disease; Visit Provider Internal Medicine Cardiovascular Disease
DX: I25.10 Atherosclerotic heart disease of native coronary artery without angina pectoris (principal); J43.9 Emphysema, unspecified; R94.39 Abnormal result of other cardiovascular function study; F17.210 Nicotine dependence, cigarettes, uncomplicated; Z79.82 Long term (current) use of aspirin; Z82.49 Family history of ischemic heart disease and other diseases of the circulatory system
CPT/HCPCS: 36415; 71046; 80048; 85027; 85610; 93306; 93454; 99152; 99153; Q9957; Q9967; A4216; C1769; C1894; C8929

== ENCOUNTER → 2024-10-18 | Outpatient (CLI) | payer BC, SELFPAY ==
--- NOTE | 2024-10-18 14:02 | PCM.CR.HP2 ---
CR - History & Physical General Arrival date:: 10/18/24 Arrival time:: 14:02 Date of Referral:: 10/07/24 Date of CR Evaluation:: 10/18/24 Referring Physician: Dr. Muse Primary Diagnosis: CABG History of Present Cardiac Event Onset Date Coronary Artery Bypass Graft:: Yes (09/15/24 onset) Vessel: ARCHULETA to zoey LAD, SVG to the obtuse marginal, and SVG to the right PDA Medications Ambulatory Orders ?Medication ?Instructions ?Recorded aspirin 81 mg tablet,delayed 81 mg PO DAILY 09/13/22 release (Adult Low Dose Aspirin) multivitamin 1 tab PO DAILY 09/13/22 sildenafil 100 mg tablet 100 mg PO DAILY PRN Erectile 09/13/22 Dysfunction methocarbamol 500 mg tablet 500 mg PO TID 10/07/24 metoprolol tartrate 25 mg tablet 25 mg PO BID 10/07/24 rosuvastatin 20 mg tablet 20 mg PO QDAY #90 tabs 10/07/24 Allergies Allergies No Known Allergies Allergy (Verified 10/07/24 14:07) Sleep Disorder Evaluation Hx of Sleep Apnea: No Do you snore loudly (louder than talking or can be heard through closed doors)?: No Do you often feel tired/ fatigued/ sleepy during daytime?: No Has anyone observed you stop breathing during sleep?: No History of Hypertension (for STOP score): No STOP Results: Negative Advanced Directives Advanced Directives Do you have a Healthcare Power of Pediatric Care Coordinator?: No Living Will: No Advance Directives Information Provided: No Advance Directives on File: No DNR Order?:: No Past Medical History Covid-19 Screening Physicial Symptoms Other Clinical Concerns Exposure Risk Pertinent Comorbidities Has a chronic lung disease or moderate to severe asthma:: Yes Has a serious heart condition:: Yes Past Medical Illness Past Medical History (Updated 10/07/24 @ 14:[address] 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 Sohail Muse MD) S/P coronary artery bypass graft x 3 Z95.1 Hx of colonoscopy Z98.890 WITH EGD History of partial gastrectomy Z90.3 Social History Smoking History Smoking Status: Former smoker Years Smokin (Stopped in August) Packs Smoked per Day: 2 Alcohol Use Alcohol Usage: No Occupation Occupation (List type of work in comments):: Retired (November 08 will retire) Social Environment Status Marital Status: Current Living Arrangements Living Environment:: Spouse Children How many children do you have?: 2 Do any of your children live nearby?: Yes Safety Do you feel safe in your surroundings?: Yes Assistance Do you need any assistance at home?: no Review of Systems Review of Systems Hints Review of Present Symptoms: Reports Shortness of Breath with Exertion, Operative Discomfort, Dizziness/Lightheadedness, Fatigue, Appetite - Normal, Appetite - Special Diet and Sleep - Normal; Denies Shortness of Breath at Rest, PVD, Angina, Wound Healing, Heart Arrhythmia/Irregularities or Sexual Changes Pain Is Patient Pain Free?: Yes Risk Factor Assessment Chief Complaint Chief Complaint: CABG Vital Signs Pulse Ox: 99 Blood Pressure: 90/58 Pulse Pulse Rate: 61 Pulse Rhythm: Regular Hypertension Blood Pressure Sitting - Right Arm: 90/58 Obesity Height: 5 ft 11 in Weight:: 154 lb Weight in Pounds: 154.0 lbs Body Mass Index (BMI): 21.4 Physical Inactivity Physical Inactivity: Reg Exercise 30 min/day Risk Stratification Risk Guidelines: Moderate Risk: Risk Factor for Diabetes, Risk Factor for Obesity, Risk Factor for Hypertension, Risk Factor for Sedentary Lifestyle and Risk Factor for Depression and Highest Risk: Risk Factor for Smoking and Risk Factor for Dyslipidemia For Smoking Smoking Risk Guidelines For Dyslipidemia Dyslipidemia Risk Guidelines For Diabetes Mellitus Diabetes Risk Guidelines For Obesity/Overweight Obesity/Overweight Risk Guidelines For Hypertension Hypertension Risk Guidelines For Sedentary Lifestyle Sedentary Lifestyle Risk Guidelines For Depression Depression Risk Guidelines Motivation Motivation to Participate On a scale of 1 to 10, how prepared are you to commit to attending program?: 6 What do you see as barriers to successfully being able to complete the program?: nothing What do you see as the benefits of succesfully completing the program? In other words, what do you hope to get out of participating in the program?: stamina Are there issues you are dealing with that will interfere with completing the program?: no Do you have a spouse or signficant other, family or friends who will help support you to complete the program?: yes
--- NOTE | 2024-10-18 14:09 | PCM.CR.ITP ---
Diagnosis General Information Admitting Diagnosis: CABG Personal Learning Style:: Audio/Visual Barriers to Learning: No Barriers Stage of change r/t lifestyle modifications:: Contemplation Gave educational material for:: Treating Heart Disease, How The Heart Works, What it means to have Heart Disease, How Coronary Artery Disease is Diagnosed, Heart Procedures, What Heart Medications Do, Risk Factors & Modifications, Living an Active Life, Nutrition, Emotions & Heart Disease, Stress Management & Relaxation and Sleep Disorders & Heart Disease Diagnosis & Disease Process Outcomes/Goals: Pt IDs own risk factors & lifestyle modifications by Session 10, Verbalizes symptoms of angina & response by session 3., Pt independently manages and Other Additional Outcomes/Goals: Plan/Interventions: Assist Pt to ID & engage in lifestyle modification to reduce CVD risk, Instruct on individual risk factors, Review symptoms of angina & emergency actions, Review secondary diagnosis & identify educational needs. and Other see comment 30 day Reassessments:: Not Met 30 day Reassessments:: Not Met 30 day Reassessments:: Not Met 30 day Reassessments:: Not Met Final Reassessments:: Not Met Safety Referral to Physical Therapy: No Referral to [facility] Case Management: No Fall Risk Assessed:: Yes Assistive Devices:: None Exercise - Initial Assessment Visit Date of Eval: 10/18/24 (initial eval ) Mets: Pre-: >3 METS for 30 minutes by discharge, >5 METS for 30 minutes by discharge, >7 METS for 30 minutes by discharge and Unable to meet goal due to: (see comment below) Physician Prescribed Exercise Modalities: Treadmill, Apix[employer]inn Airdyne AD-7, TFG [employer] SolutionsFit Stepper, TFG [employer] SolutionsFit Pro-II Ergometer and Conelum Lateral Moore Frequency: 3x/week for 12 weeks [36 sessions] Intensity: 60-80% of age predicted maximum heart rate reserve Duration: 30 - 45 minutes Current METSs:: 3 Target Heart Rate:: 93-117 EKG Type: NSR Outcomes & Goals Goals:: Verbalizes understanding of THR, RPE & goal METS by session 6, Documents in home exercise log/reports 30 min aerobic 5 day/wk by DC, Demonstrates accurate pulse taking by DC and Other additional outcome/goals: see below Intervention & Plan Exercise Program Goals: Instruct on personal THR & RPE, Instruct on MET level & personal MET goal, Show patient to take own pulse /validate performance until accurate, Instruct on home exercise and Other additional plan/int Physical Activity Home Exercise Physical Activity - Home Exercise: Safe Exercise, Warm-up, Self-monitoring, Cool-Down, Home Exercise > 30 min Daily and Sitting Time <3 hours/daily Outcomes & Goals Outcomes/Goals: Demonstrates correct Warm-up/exercise Cool-Down (S3) if = 2.5 METs, Verbalizes symptoms of exercise intolerance by Session 3 (S3), Demonstrate safe equipment use (S3) & follows exercise prescrition (6) and Other: See below Intervention & Plan Plan/Intervention: Instruct warm-up & cool-down if exercising at > 2 METs, Instruct on symptoms of exercise intolerance & actions to take, Instruct & monitor on saf, Assess intial functional capacity & safety risk and Other See below Nutrition - Initial Assessment Program Goals Nutrition Program Goals Patient has diagnosis of Hyperlipidemia (ICD E78)?: Yes Visit Date of Eval: 10/18/24 (initial eval ) Cholesterol/Lipids (Other Core Measures) Determine presence & major risk factors that modify LDL goal: Cigarette smoking, Hypertension or hypertensive medication, Low HDL cholesterol <40 mg/dL*, Family history of premature CHD in Male < 55 years: female <65 yearsFa and Age men > 45 years; women >/= 55 years Outcomes/Goals: Pt IDs own risk factors & lifestyle modifications by Session 10, Verbalizes symptoms of angina & response by session 3., Pt independently manages and Other Additional Outcomes/Goals: Intervention/Plan: Advocate for lipid panel cholesterol medication if applicable, Instruct on personal lipid levels & lipid goals/NCEP guidelines, Instruct on cholesterol and Other additional plan/int Diabetes (Other Core Measures) Diabetes Type: Not Applicable Weight Mgt (Other Care) Height: 5 ft 11 in Weight:: 154 lb BMI: 21.4 Diagnosis Overweight/Obesity BMI> 30% ICD-10 E66: No Diagnosis High BMI/Morbid Obesity BMI> 35% ICD-10 Z68: No Outcomes/Goals: Pt sets, maintains & shows weight loss goal & trend during rehab and Other additional outcomes/goals Intervention/Plan: Instruct on ideal BMI & set weight loss goal w/patient, Assist pt to ID & incorporate diet changes for weight loss by S9, Refer to Structured Weight Loss program as appropriate, Encourage goal of using 250-300dcal per session for weight loss and Other additional plan/interventions Healthy Eating Habits Will attend diet classes:: Yes Outcomes/Goals:: Consume diet rich in vegs,fruits,whole grain/high fiber,fish,lean meat, Limit sat/trans fats,cholesterol & added salts & sugars and Other additional outcome/goals: Intervention/Plan:: Assess current eating habits and Other Additional plan/interventions Education Gave educational materials for:: Signs & symptoms of hypoglycemia, Signs & symptoms of hyperglycemia, Relate diabetes to coronary artery disease and Healthy eating Core - Initial Assessment Visit Date of Eval: 10/18/24 (initial eval) Medication Compliance Preventative Medication(s):: Aspirin, Statin/lipid and Beta aretha H/O mental health issues: depression, anxiety, or addiction?: No Doesn?t believe in the benefits of treatment?: No Believes medications are unnecessary or harmful?: No Has a concern about medication side effects?: No Expresses concern over the cost of medications?: No Outcomes/Goals: Verbalizes medications,desired effect & common side effects @ DC, Pt self-reports following medication regimen, Keeps card in wallet w/medications listed by DC and Other additional outcome/goals: Interventions/plans: Instruct on medication effects & side effects, Review medication list w/patient every two weeks, Instruct importance of taking meds as ordered & assist problem solving and Other additional Tobacco Use Tobacco Use: Non-smoker How long ago did you quit using tobacco products?: Less than 6 months ago Outcomes/Goals: Smoking cessation achieved or maintained by discharge, Identify aids/strategies for achieving smoking cessation by session 6 and Other additional outcome/goals Interventions/plan: Instruct on effects of smoking & provide smoking cessation resource, Assist pt to set quit date & provide encouragement, Assist pt to develop strategies to achieve/maintain quit date, Assist pt w/nicotine replacement & medication for cessation success and Other additional plan/interventions Hypertension Hypertension Diagnosis:: Not Applicable [place] [employer] Hypertension Guidelines Outcomes/Goals: Able to verbalize/achieve optimal blood pressure <130/80, Incorporates diet changes & exercise for blood pressure control by DC and Other additional outcomes/goals Interventions/plan: Instruct on optimal blood pressure, hypertension & medications, Instruct on effects of sodium, alcohol, stress, exercise &hypertension and Other additional plan/interventions Tobacco Cessation Referral Smoking Cessation Referral:: No Individual Education/Counseling:: No Education Schedule Given:: Yes Psychosocial - Initial Assess VIsit Date of Eval: 10/18/24 (initial eval ) History of previous Mental disease:: No Target Goals Target Goals Psychosocial Test Tool Used:: PHQ-9 Questionnaire phq-9 Severity Referral to Behavioral Health PS - Interventions: Yes: Attend Stress Management Classes Outcomes/Goals: See list Psychosocial Outcomes/Goals:: ID's personal stressors & 2 strategies to manage stress by discharge and Other Additional outcome/goals: Intervention/Plan: See List Interventions/Plan:: Assess stressors,coping strategies & signs of derpression on admission, Instruct/assist pt to develop coping & personal stress Mgt strategies, Refer to Behavioral Health if appropriate, Refer to Physician if appropriate, Instruct patient to recognize signs & symptoms of depression, Instruct patient to recog and Other additional plan/intervention Nutrition Survey Nutrition Survey Instructions Scoring Instructions Exercise - 30-day Assessment Physician Prescribed Exercise Modalities: Treadmill, Schwinn Airdyne AD-7, SciFit Stepper, SciFit Pro-II Ergometer and SciFit Lateral Moore Exercise - 60-day Assessment Physician Prescribed Exercise Modalities: Treadmill, [employer]inn Airdyne AD-7, SciFit Stepper, SciFit Pro-II Ergometer and SciFit Lateral Bus Washer Exercise - 90-day Assessment Physician Prescribed Exercise Modalities: Treadmill, [employer]inn Airdyne AD-7, SciFit Stepper, SciFit Pro-II Ergometer and SciFit Lateral Moore Exercise - Final/Discharge Physician Prescribed Exercise Modalities: Treadmill, Schwinn Airdyne AD-7, SciFit Stepper, SciFit Pro-II Ergometer and SciFit Lateral Moore Frequency: 3x/week for 12 weeks [36 sessions] Intensity: 60-80% of age predicted maximum heart rate reserve Current METSs:: 3 Target Heart Rate:: 93-117 Nutrition - 30-Day Assessment Weight Mgt (Other Care) Height: 5 ft 11 in Weight:: 154 lb BMI: 21.4 Nutrition - 60-Day Assessment Weight Mgt (Other Care) Height: 5 ft 11 in Weight:: 154 lb BMI: 21.4 Psychosocial - 30-Day Assess Target Goals Target Goals Referral to Behavioral Health PS - Interventions: Yes: Attend Stress Management Classes Psychosocial - 60-Day Assess Target Goals Target Goals Referral to Behavioral Health PS - Interventions: Yes: Attend Stress Management Classes Psychosocial - 90-Day Assess Target Goals Target Goals Referral to Behavioral Health PS - Interventions: Yes: Attend Stress Management Classes Psychosocial - Final Assessmen Target Goals Target Goals Referral to Behavioral Health PS - Interventions: Yes: Attend Stress Management Classes Nutrition - 90-Day Assessment Weight Mgt (Other Care) Height: 5 ft 11 in Weight:: 154 lb BMI: 21.4 Nutrition - Final Assessment Program Goals Patient has diagnosis of Hyperlipidemia (ICD E78)?: Yes Weight Mgt (Other Care) Height: 5 ft 11 in Weight:: 154 lb BMI: 21.4
== END | disposition home or self-care (01) ==
LOC: CR 13:56
PROVIDERS: PCP Family Medicine; Referring Provider Internal Medicine Cardiovascular Disease; Visit Provider Internal Medicine Cardiovascular Disease
DX: I25.10 Atherosclerotic heart disease of native coronary artery without angina pectoris (principal); Z95.1 Presence of aortocoronary bypass graft

== ENCOUNTER → 2024-10-30 | Outpatient (CLI) | payer BC, SELFPAY ==
[2024-10-30 11:12] LABS: AST(SGOT) 24 U/L (<=37); Alanine Aminotransfer ALT/SGPT 15 U/L (<=46); Albumin, Serum 4.2 g/dL (3.4-4.8); Alkaline Phosphatase 84 U/L (40-129); Bilirubin, Direct 0.26 mg/dL (0.00-0.30); Cholesterol 131 mg/dL (<=200); Globulin 3.2 g/dL (2.2-4.2); Low Density Lipoprotein Calc. 60 mg/dL; Triglycerides 119 mg/dL; Very Low Density Lipoprotein 24 mg/dL (5-40); cholesterol:hdl ratio screen 2.75
== END | disposition home or self-care (01) ==
LOC: LAB 09:42
PROVIDERS: PCP Family Medicine; Referring Provider Nurse Practitioner Family; Visit Provider Nurse Practitioner Family
DX: I25.10 Atherosclerotic heart disease of native coronary artery without angina pectoris (principal); E78.5 Hyperlipidemia, unspecified; I95.1 Orthostatic hypotension
CPT/HCPCS: 36415; 80061; 80076

== ENCOUNTER → 2024-11-28 | Outpatient (CLI) | payer MEDICARE, BC, OTHER, SELFPAY ==
--- NOTE | 2024-11-28 12:55 | RAD_ITS ---
PROCEDURE: SHOULDER MIN 2 VIEWS 11/28/2024 REASON FOR EXAM: PAIN TECHNIQUE: Four view left shoulder series. Laterality: Left COMPARISON: None. 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 The left glenohumeral joint demonstrates minimal degenerative changes, without apparent joint narrowing. No acute fracture or dislocation is seen. Reading Location: [place] [id number]
== END | disposition home or self-care (01) ==
PROVIDERS: PCP Family Medicine; Referring Provider Family Medicine; Visit Provider Family Medicine
DX: M25.512 Pain in left shoulder (principal)
CPT/HCPCS: 73030

== ENCOUNTER → 2025-03-14 | Outpatient (CLI) | payer MEDICARE, OTHER, SELFPAY ==
[2025-03-14 11:12] LABS: AST(SGOT) 27 U/L (<=37); Alanine Aminotransfer ALT/SGPT 19 U/L (<=46); Albumin, Serum 4.6 g/dL (3.4-4.8); Alkaline Phosphatase 81 U/L (40-129); Anion Gap 9 (5-15); BUN 10 mg/dL (4-19); BUN/Creat Ratio 8.9 RATIO (10-20); CPK Total, Creatine Kinase 128 U/L (24-195); Calcium,Total 9.9 mg/dL (7.6-11.0); Carbon Dioxide 25.9 mmol/L (21.0-32.0); Chloride 104 mmol/L (98-108); Cholesterol 142 mg/dL (<=200); Globulin 3.0 g/dL (2.2-4.2); Glucose 107 mg/dL (70-99); Low Density Lipoprotein Calc. 67 mg/dL; Potassium 4.4 mmol/L (3.3-5.1); Triglycerides 98 mg/dL; Very Low Density Lipoprotein 20 mg/dL (5-40); cholesterol:hdl ratio screen 2.50
== END | disposition home or self-care (01) ==
LOC: LAB 10:17
PROVIDERS: PCP Family Medicine; Referring Provider Internal Medicine Cardiovascular Disease; Visit Provider Internal Medicine Cardiovascular Disease
DX: R06.09 Other forms of dyspnea (principal); R53.83 Other fatigue; E78.5 Hyperlipidemia, unspecified; Z95.1 Presence of aortocoronary bypass graft
CPT/HCPCS: 36415; 80053; 80061; 82550

== ENCOUNTER → 2025-03-31 | Outpatient (CLI) | payer MEDICARE, OTHER, SELFPAY ==
[2025-03-31 15:42] LABS: AST(SGOT) 23 U/L (<=37); Alanine Aminotransfer ALT/SGPT 14 U/L (<=46); Albumin, Serum 4.7 g/dL (3.4-4.8); Alkaline Phosphatase 78 U/L (40-129); Anion Gap 10 (5-15); BUN 7 mg/dL (4-19); BUN/Creat Ratio 7.0 RATIO (10-20); Calcium,Total 9.7 mg/dL (7.6-11.0); Carbon Dioxide 25.6 mmol/L (21.0-32.0); Chloride 104 mmol/L (98-108); Globulin 2.9 g/dL (2.2-4.2); Glucose 95 mg/dL (70-99); Potassium 4.2 mmol/L (3.3-5.1)
== END | disposition home or self-care (01) ==
LOC: LAB 14:47
PROVIDERS: PCP Family Medicine; Referring Provider Internal Medicine Cardiovascular Disease; Visit Provider Internal Medicine Cardiovascular Disease
DX: I25.10 Atherosclerotic heart disease of native coronary artery without angina pectoris (principal); I10 Essential (primary) hypertension
CPT/HCPCS: 36415; 80053